=== PATIENT | male | born 1990 | race Caucasian/White ===

== ENCOUNTER 2020-07-25 21:53 | Emergency (ER) | payer MEDICAID, SELFPAY ==
[2020-07-25 22:15] VITALS: BP 149/95; PULSE 98; RESP 16; O2SAT 98; BMI 18.1
--- NOTE | 2020-07-25 22:15 | PC.NURSE ---
Patient is in his room and laying on the bed. His mom is at bedside. He is calm and compliant at this time.
[2020-07-25 22:44] LABS: UR Morphine/Opiate cutoff 300 Negative (Negative); Ur Creatinine 20 (Normal); Ur Specific Gravity 1.015 (Normal); Urine Amphetamines Negative (Negative); Urine Barbiturates Negative (Negative); Urine Benzodiazepines Negative (Negative); Urine Cocaine Negative (Negative); Urine MDMA Negative (Negative); Urine Methadone Negative (Negative); Urine Methamphetamines Negative (Negative); Urine Oxycodone Negative (Negative); Urine Phencyclidine Negative (Negative); Urine Tetrahydrocannabinol Positive (Negative); Urine Tricyclic Antidepressant Negative (Negative); Urine pH 5 (Normal)
--- NOTE | 2020-07-25 22:45 | ED_ITS ---
HPI - Psych <Dez Polanco DO - Last Filed: 07/26/20 18:09> General Chief Complaint: Psychiatric Symptoms Stated Complaint: pych episodes Time Seen by Provider: 07/25/20 22:13 Source: patient and family (Mother) Mode of arrival: Ambulatory Limitations: no limitations History of Present Illness HPI Narrative: Patient is a 29-year-old male. 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 Is currently living with his mother. He does not have a job. He denies drinking alcohol but does admit to smoking marijuana. He is here with his mother. He is here willingly however he does state that he is here because his mother encouraged him to come. He is here for evaluation of episodes that have been worsening over the past several days/weeks. According to the patient he is here because last night he stated that he had to show an expression of his estela by walking off of a peer. He states that he was doing this because got was telling him to do an expression of his face and so the patient thought that if he walked off the pier and t hat would be fine however he knew that got was going to save him. He states that he walked and water but then came to the surface and then climbed out of the peer and came home. He states that he has been hearing God talk to him. He states that he has been having what he initially describes as dreams but his mother states they are visions. He states that his most recent one was about seeing UFO's. He describes episodes of ?downloading information ?from these dreams. He states he does frequently talk with god. Patient states that he does not have thoughts of killing himself. He does not have thoughts of hurting others. He states he does not feel that he needs admission to the hospital. He has never been diagnosed with a mental health issue in the past. His mother states that they are worried that the patient may have one of his visions and walk out of the house and potentially hurt himself or others. Related Data Allergies Allergy/AdvReac Type Severity Reaction Status Date / Time Penicillins Allergy Verified 07/25/20 22:11 Review of Systems <Dez Polanco DO - Last Filed: 07/26/20 18:09> Constitutional Constitutional: Denies headache(s) ENT Ears, Nose, Mouth, and Throat: Denies headache(s) Cardiovascular Cardiovascular: Denies chest pain and Denies dyspnea Respiratory Respiratory: Denies dyspnea Gastrointestinal Gastrointestinal: Denies abdominal pain Neurologic Neurologic: Reports behavioral changes, Denies confusion and Denies headache(s) Psychiatric Psychiatric: Denies anxiety, Reports behavioral changes, Denies confusion, Denies depression, Denies panic attacks, Denies homicidal ideation and Denies suicidal ideation Hematologic/Lymphatic Hematologic/Lymphatic: Denies easy bleeding and Denies easy bruising Allergic/Immunologic Allergic/Immunologic: Denies urticaria Patient History <Dez Polanco DO - Last Filed: 07/26/20 18:09> Medical History Healthy adult Social History Smoking Status: Current every day smoker Exam <DO Lubna Ewing Last Filed: 07/26/20 18:09> Initial Vital Signs Initial Vital Signs: Vital Signs Pulse Rate 98 H 07/25/20 22:15 Respiratory Rate 16 07/25/20 22:15 Blood Pressure 149/95 H 07/25/20 22:15 Pulse Oximetry 98 07/25/20 22:15 Const General: cooperative, comfortable, well developed and well groomed Limitations: mental status not altered HENMT Head: normal to inspection and normocephalic Resp Effort & Inspection: normal respiratory effort Cardio Rate: regular rate Skin Lesions: no lesions Rashes: no rashes Neuro General: patient alert and patient awake Cognition: normal cognition Speech: speech normal Psych Appearance: grossly normal and well kempt Speech and Movement: speech and movement normal, not agitated, speech not pressured and not restless Mood: not anxious and No angry Affect: normal affect, No sad and No animated Attitude: cooperative Thought Content: delusions, no homicidality and suicidality <Shiva Silver DO - Last Filed: 07/26/20 14:15> Initial Vital Signs Initial Vital Signs: Vital Signs Pulse Rate 98 H 07/25/20 22:15 Respiratory Rate 16 07/25/20 22:15 Blood Pressure 149/95 H 07/25/20 22:15 Pulse Oximetry 98 07/25/20 22:15 Scores <DO Lubna Ewing Last Filed: 07/26/20 18:09> GCS Diaz coma scale eye opening: Spontaneous [place] coma scale verbal response: Orientated Diaz coma scale motor response: Obey commands Diaz coma scale total score: 15 Course <Dez Polanco, DO - Last Filed: 07/26/20 18:09> Orders Ordered: ED Orders 07/25/20 22:30 Urine Drug Screen, Rapid Stat 07/25/20 22:35 Acetaminophen Stat Complete Blood Count AUTO DIFF Stat Comprehensive Metabolic Panel Stat Ethanol (ETOH) Stat Salicylate Stat Thyroid Stimulating Hormone Stat 07/25/20 22:45 Consult to [facility] Lotus Notes Administrator Stat 07/26/20 01:05 COVID19 Stat Vital Signs Vital signs: Vital Signs - 8 hr 07/26/20 13:46 Pulse Rate 89 Respiratory Rate 20 Blood Pressure 142/87 H Pulse Oximetry 98 <Shiva Silver, DO - Last Filed: 07/26/20 14:15> Course Course Narrative: Patient received in sign-out from Dr. Polanco. Patient is sleeping, resting comfortably. [employer] has become involved, please see their note for the details of placement. He continues to hear voices but is pleasant and upright, interacting with sitter. Patient continues to be voluntary and medically cleared. M[employer] F[employer] has found placement [facility] in [facility]. Orders Ordered: ED Orders 07/25/20 22:30 Urine Drug Screen, Rapid Stat 07/25/20 22:35 Acetaminophen Stat Complete Blood Count AUTO DIFF Stat Comprehensive Metabolic Panel Stat Ethanol (ETOH) Stat Salicylate Stat Thyroid Stimulating Hormone Stat 07/25/20 22:45 [facility] 07/26/20 01:05 COVID19 Stat Vital Signs Vital signs: Vital Signs - 8 hr 07/26/20 13:46 Pulse Rate 89 Respiratory Rate 20 Blood Pressure 142/87 H Pulse Oximetry 98 MDM - Psych <Dez Polanco DO - Last Filed: 07/26/20 18:09> Lab Data Attestation: I reviewed the patient's lab results. Result diagrams: 07/25/20 22:35 07/25/20 22:35 Labs: Lab Results 07/25/20 07/25/20 07/25/20 Range/Units 22:30 22:35 22:35 WBC 11.2 H (4.5-11.0) X10^3/uL RBC 4.92 (4.5-5.9) X10^6/uL Hgb 14.7 (13.5-17.5) g/dL Hct 43.3 (41-53) % MCV 87.9 (80-100) fL MCH 29.8 (26-34) PG MCHC 33.9 (30-36) % RDW 13.7 (11.6-14.8) % Plt Count 325 (150-400) X10^3/uL Neut % (Auto) 66.1 (50-75) % Lymph % (Auto) 23.2 L (25-40) % Garden % (Auto) 9.4 (3-14) % Eos % (Auto) 0.6 L (2-4) % Baso % (Auto) 0.7 (0-2) % Neut # (Auto) 7400 H (4020-9014) /uL Lymph # (Auto) 2600 (6314-5292) /uL Garden # (Auto) 1100 H (0-900) /uL Eos # (Auto) 100 (0-450) /uL Baso # (Auto) 100 (0-100) /uL Sodium (137-145) mmol/L Potassium (3.4-5.1) mmol/L Chloride (98-107) mmol/L Carbon Dioxide (22-32) mmol/L BUN (9-20) mg/dL Creatinine (0.66-1.25) mg/dL Estimated GFR (>60) mL/min BUN/Creatinine Ratio (6-22) Glucose (70-100) mg/dL Calcium (8.4-10.2) mg/dL Total Bilirubin (0.2-1.3) mg/dL AST (17-59) IU/L ALT (<50) IU/L Alkaline Phosphatase (38-126) U/L Total Protein (6.3-8.2) g/dL Albumin (3.5-5.0) g/dL Globulin (1.7-4.1) g/dL Albumin/Globulin Ratio (1.0-2.8) TSH (0.47-4.68) uIU/mL Salicylates (<20) mg/dL U Opiates 300ng/mL cut Negative (Negative) Ur Oxycodone Screen Negative (Negative) Urine Methadone Screen Negative (Negative) Acetaminophen < 10 L (10-30) ug/mL Ur Barbiturates Screen Negative (Negative) U Tricyclic Antidepress Negative (Negative) Ur Phencyclidine Scrn Negative (Negative) Ur Amphetamines Screen Negative (Negative) U Methamphetamines Scrn Negative (Negative) Ur MDMA Scrn (Ecstasy) Negative (Negative) U Benzodiazepines Scrn Negative (Negative) Urine Cocaine Screen Negative (Negative) U Marijuana (THC) Screen Positive H (Negative) Ethyl Alcohol ( - 10) mg/dL SARS-CoV-2 (PCR) (Negative) 07/25/20 07/25/20 07/26/20 Range/Units 22:35 22:35 01:05 WBC (4.5-11.0) X10^3/uL RBC (4.5-5.9) X10^6/uL Hgb (13.5-17.5) g/dL Hct (41-53) % MCV (80-100) fL MCH (26-34) PG MCHC (30-36) % RDW (11.6-14.8) % Plt Count (150-400) X10^3/uL Neut % (Auto) (50-75) % Lymph % (Auto) (25-40) % Garden % (Auto) (3-14) % Eos % (Auto) (2-4) % Baso % (Auto) (0-2) % Neut # (Auto) (4595-6600) /uL Lymph # (Auto) (2339-4632) /uL Garden # (Auto) (0-900) /uL Eos # (Auto) (0-450) /uL Baso # (Auto) (0-100) /uL Sodium 134 L (137-145) mmol/L Potassium 3.6 (3.4-5.1) mmol/L Chloride 96 L (98-107) mmol/L Carbon Dioxide 31 (22-32) mmol/L BUN 12 (9-20) mg/dL Creatinine 0.77 (0.66-1.25) mg/dL Estimated GFR > 60.0 (>60) mL/min BUN/Creatinine Ratio 15.6 (6-22) Glucose 102 H (70-100) mg/dL Calcium 9.5 (8.4-10.2) mg/dL Total Bilirubin 1.0 (0.2-1.3) mg/dL AST 39 (17-59) IU/L ALT 19 (<50) IU/L Alkaline Phosphatase 60 (38-126) U/L Total Protein 8.0 (6.3-8.2) g/dL Albumin 4.9 (3.5-5.0) g/dL Globulin 3.1 (1.7-4.1) g/dL Albumin/Globulin Ratio 1.6 (1.0-2.8) TSH 0.401 L (0.47-4.68) uIU/mL Salicylates < 1.0 (<20) mg/dL U Opiates 300ng/mL cut (Negative) Ur Oxycodone Screen (Negative) Urine Methadone Screen (Negative) Acetaminophen (10-30) ug/mL Ur Barbiturates Screen (Negative) U Tricyclic Antidepress (Negative) Ur Phencyclidine Scrn (Negative) Ur Amphetamines Screen (Negative) U Methamphetamines Scrn (Negative) Ur MDMA Scrn (Ecstasy) (Negative) U Benzodiazepines Scrn (Negative) Urine Cocaine Screen (Negative) U Marijuana (THC) Screen (Negative) Ethyl Alcohol < 10 ( - 10) mg/dL SARS-CoV-2 (PCR) Negative (Negative) Urine Dip Bedside Urine Glucose Negative Bedside Urine Bilirubin - Negative Bedside Urine Ketone - Negative Urine Specific [place] 1.010 Bedside Urine Occult Blood - Negative Bedside Urine pH 6.0 Bedside Urine Protein - Negative Bedside Urine Urobilinogen - Negative Bedside Urine Nitrite - Negative Bedside Urine Leukocytes - Negative Esterase MDM Narrative Medical decision making narrative: Patient is medically cleared. UDS is positive for THC however he admits to smoking marijuana. He is not currently suicidal. Not homicidal. Has obvious delusions specifically revolving around latter day issues and also [place] peaking to him. When the patient walked off the pier he stated that he was not trying to kill himself he was just trying to show an expression of estela in God and that God would save his life. He has no prior mental health diagnoses. Had a discussion with the patient his mother. The mother is concerned about his safety at home. I do not feel that the patient would warrant a involuntary admission to the hospital and patient would not like to be admitted to the hospital however he is willing to stay in the emergency department overnight and having discussion with social work in the morning regarding his symptoms. Patient has been stable overnight. Care turned over to Dr. Silver at change of shift to follow up. A disposition. <Shiva Silver, DO - Last Filed: 07/26/20 14:15> Lab Data Labs: Lab Results 07/25/20 07/25/20 07/25/20 Range/Units 22:30 22:35 22:35 WBC 11.2 H (4.5-11.0) X10^3/uL RBC 4.92 (4.5-5.9) X10^6/uL Hgb 14.7 (13.5-17.5) g/dL Hct 43.3 (41-53) % MCV 87.9 (80-100) fL MCH 29.8 (26-34) PG MCHC 33.9 (30-36) % RDW 13.7 (11.6-14.8) % Plt Count 325 (150-400) X10^3/uL Neut % (Auto) 66.1 (50-75) % Lymph % (Auto) 23.2 L (25-40) % Garden % (Auto) 9.4 (3-14) % Eos % (Auto) 0.6 L (2-4) % Baso % (Auto) 0.7 (0-2) % Neut # (Auto) 7400 H (4905-6133) /uL Lymph # (Auto) 2600 (6577-1661) /uL Garden # (Auto) 1100 H (0-900) /uL Eos # (Auto) 100 (0-450) /uL Baso # (Auto) 100 (0-100) /uL Sodium (137-145) mmol/L Potassium (3.4-5.1) mmol/L Chloride (98-107) mmol/L Carbon Dioxide (22-32) mmol/L BUN (9-20) mg/dL Creatinine (0.66-1.25) mg/dL Estimated GFR (>60) mL/min BUN/Creatinine Ratio (6-22) Glucose (70-100) mg/dL Calcium (8.4-10.2) mg/dL Total Bilirubin (0.2-1.3) mg/dL AST (17-59) IU/L ALT (<50) IU/L Alkaline Phosphatase (38-126) U/L Total Protein (6.3-8.2) g/dL Albumin (3.5-5.0) g/dL Globulin (1.7-4.1) g/dL Albumin/Globulin Ratio (1.0-2.8) TSH (0.47-4.68) uIU/mL Salicylates (<20) mg/dL U Opiates 300ng/mL cut Negative (Negative) Ur Oxycodone Screen Negative (Negative) Urine Methadone Screen Negative (Negative) Acetaminophen < 10 L (10-30) ug/mL Ur Barbiturates Screen Negative (Negative) U Tricyclic Antidepress Negative (Negative) Ur Phencyclidine Scrn Negative (Negative) Ur Amphetamines Screen Negative (Negative) U Methamphetamines Scrn Negative (Negative) Ur MDMA Scrn (Ecstasy) Negative (Negative) U Benzodiazepines Scrn Negative (Negative) Urine Cocaine Screen Negative (Negative) U Marijuana (THC) Screen Positive H (Negative) Ethyl Alcohol ( - 10) mg/dL SARS-CoV-2 (PCR) (Negative) 07/25/20 07/25/20 07/26/20 Range/Units 22:35 22:35 01:05 WBC (4.5-11.0) X10^3/uL RBC (4.5-5.9) X10^6/uL Hgb (13.5-17.5) g/dL Hct (41-53) % MCV (80-100) fL MCH (26-34) PG MCHC (30-36) % RDW (11.6-14.8) % Plt Count (150-400) X10^3/uL Neut % (Auto) (50-75) % Lymph % (Auto) (25-40) % Garden % (Auto) (3-14) % Eos % (Auto) (2-4) % Baso % (Auto) (0-2) % Neut # (Auto) (2470-3266) /uL Lymph # (Auto) (3925-0783) /uL Garden # (Auto) (0-900) /uL Eos # (Auto) (0-450) /uL Baso # (Auto) (0-100) /uL Sodium 134 L (137-145) mmol/L Potassium 3.6 (3.4-5.1) mmol/L Chloride 96 L (98-107) mmol/L Carbon Dioxide 31 (22-32) mmol/L BUN 12 (9-20) mg/dL Creatinine 0.77 (0.66-1.25) mg/dL Estimated GFR > 60.0 (>60) mL/min BUN/Creatinine Ratio 15.6 (6-22) Glucose 102 H (70-100) mg/dL Calcium 9.5 (8.4-10.2) mg/dL Total Bilirubin 1.0 (0.2-1.3) mg/dL AST 39 (17-59) IU/L ALT 19 (<50) IU/L Alkaline Phosphatase 60 (38-126) U/L Total Protein 8.0 (6.3-8.2) g/dL Albumin 4.9 (3.5-5.0) g/dL Globulin 3.1 (1.7-4.1) g/dL Albumin/Globulin Ratio 1.6 (1.0-2.8) TSH 0.401 L (0.47-4.68) uIU/mL Salicylates < 1.0 (<20) mg/dL U Opiates 300ng/mL cut (Negative) Ur Oxycodone Screen (Negative) Urine Methadone Screen (Negative) Acetaminophen (10-30) ug/mL Ur Barbiturates Screen (Negative) U Tricyclic Antidepress (Negative) Ur Phencyclidine Scrn (Negative) Ur Amphetamines Screen (Negative) U Methamphetamines Scrn (Negative) Ur MDMA Scrn (Ecstasy) (Negative) U Benzodiazepines Scrn (Negative) Urine Cocaine Screen (Negative) U Marijuana (THC) Screen (Negative) Ethyl Alcohol < 10 ( - 10) mg/dL SARS-CoV-2 (PCR) Negative (Negative) Urine Dip Bedside Urine Glucose Negative Bedside Urine Bilirubin - Negative Bedside Urine Ketone - Negative Urine Specific [place] 1.010 Bedside Urine Occult Blood - Negative Bedside Urine pH 6.0 Bedside Urine Protein - Negative Bedside Urine Urobilinogen - Negative Bedside Urine Nitrite - Negative Bedside Urine Leukocytes - Negative Esterase Discharge Plan Departure Patient Disposition: Xfer Psychiatric Hosp Clinical Impression: Acute psychosis Referrals: Elizabeth Coy MD [Primary Care Provider] -
[2020-07-25 23:02] LABS: Add Manual Diff / Slide Review NO; Basophils Absolute Auto 100 /uL (0-100); Basophils Percent Auto 0.7 % (0-2); Eosinophils Absolute Auto 100 /uL (0-450); Eosinophils Percent Auto 0.6 % (2-4); Hematocrit 43.3 % (41-53); Hemoglobin 14.7 g/dL (13.5-17.5); Lymphocytes Absolute Auto 2600 /uL (1100-4500); Lymphocytes Percent Auto 23.2 % (25-40); Mean Corpuscular HGB Conc 33.9 % (30-36); Mean Corpuscular Hemoglobin 29.8 PG (26-34); Mean Corpuscular Volume 87.9 fL (80-100); Monocytes Absolute Auto 1100 /uL (0-900); Monocytes Percent Auto 9.4 % (3-14); Neutrophils Absolute Auto 7400 /uL (1500-7000); Neutrophils Percent Auto 66.1 % (50-75); Platelet Count 325 X10^3/uL (150-400); Red Blood Cell Count 4.92 X10^6/uL (4.5-5.9); Red Cell Distribution Width 13.7 % (11.6-14.8); White Blood Cell Count 11.2 X10^3/uL (4.5-11.0)
[2020-07-25 23:05] LABS: Acetaminophen < 10 ug/mL (10-30)
[2020-07-25 23:06] LABS: Alanine Aminotransferase 19 IU/L (<50); Albumin 4.9 g/dL (3.5-5.0); Albumin Globulin Ratio 1.6 (1.0-2.8); Alkaline Phosphatase 60 U/L (38-126); Aspartate Aminotransferase 39 IU/L (17-59); BUN Creatinine Ratio 15.6 (6-22); Blood Urea Nitrogen 12 mg/dL (9-20); Calcium 9.5 mg/dL (8.4-10.2); Carbon Dioxide 31 mmol/L (22-32); Chloride 96 mmol/L (98-107); Estimated Glomerular Filt Rate > 60.0 mL/min (>60); Ethanol (ETOH) < 10 mg/dL; Globulin 3.1 g/dL (1.7-4.1); Glucose 102 mg/dL (70-100); HEMOLYSIS < 15 (0-50); Potassium 3.6 mmol/L (3.4-5.1); Salicylate < 1.0 mg/dL (<20); Sodium 134 mmol/L (137-145)
--- NOTE | 2020-07-25 23:13 | PC.NURSE ---
Darshana Marrufo phone number [phone]
[2020-07-25 23:50] LABS: Thyroid Stimulating Hormone 0.401 uIU/mL (0.47-4.68)
[2020-07-26 01:27] LABS: COVID19 -Nasal RAPID Negative (Negative)
--- NOTE | 2020-07-26 01:30 | PC.NURSE ---
Pt is entertaining himself with mobile phone. Pt frequently changing positions on bed. some pacing around room.
--- NOTE | 2020-07-26 08:03 | PC.NURSE ---
patient sleeping, sitter at door, door open.
[2020-07-26 08:34] VITALS: BP 152/86; PULSE 81; RESP 14; O2SAT 96
[2020-07-26 09:31] VITALS: RESP 16
--- NOTE | 2020-07-26 09:56 | PC.NURSE ---
patient allowed to sleep. respirations observed, sitter at doorway, door open.
--- NOTE | 2020-07-26 11:04 | PC.NURSE ---
ECONOMIC HISTORY TEACHER and Pt Mother are in room speaking with Pt
--- NOTE | 2020-07-26 11:15 | PC.NURSE ---
Pt lying on gurney, Mother at bedside
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
--- NOTE | 2020-07-26 11:59 | PC.NURSE ---
Pt lying on gurney crying and vocalizing, Mother is sitting on bed trying to comfort Pt
--- NOTE | 2020-07-26 13:36 | PC.NURSE ---
I talked with Kyleigh GUERRA about pt's acceptance to [facility] in [place]. I updated the patient and his mother. Pt's mother has address and phone number to facility. Transport ETA [phone] here, arrival at [place] aprox [phone].
[2020-07-26 13:46] VITALS: BP 142/87; PULSE 89; RESP 20; O2SAT 98
--- NOTE | 2020-07-26 14:21 | PC.NURSE ---
NWA has left ED with Pt. End Pt 1:1
== END 2020-07-26 14:10 ==
PROVIDERS: Emergency Medicine; Emergency Provider Emergency Medicine; Family Provider Nutritionist; PCP Nutritionist
DX: F23 Brief psychotic disorder (principal); F12.90 Cannabis use, unspecified, uncomplicated; Z20.822 Contact with and (suspected) exposure to COVID-19
CPT/HCPCS: 80053; 80305; 80320; 80329; 81003; 84443; 85025; 87635; 99284; G0480